=== PATIENT | male | born 1990 | race American Indian/Alaskan Native ===

== ENCOUNTER 2019-01-26 03:19 | Emergency (ER) | payer SELFPAY ==
[2019-01-26 04:15] LABS: Hematocrit 46.4 % (35.5-45.6); Mean Corpuscular HGB Conc 34 % (32-34); Mean Corpuscular Volume 95 fl (84-94); Platelet Count 314 K/mm3 (140-440); Red Blood Count 4.88 M/mm3 (3.65-5.03); Red Cell Distribution Width 13.4 % (13.2-15.2)
[2019-01-26 04:31] LABS: Alanine Aminotransferase 57 units/L (7-56); Albumin 4.7 g/dL (3.9-5); BUN/Creatinine Ratio 9; Blood Urea Nitrogen 9 mg/dL (9-20); Calcium 9.5 mg/dL (8.4-10.2); Hemolysis Index 7
[2019-01-26] MEDS ORDERED: SODIUM CHLORIDE 0.9% 1000 ML 1,000 ML IV ONE (04:46)
[2019-01-26] MEDS ORDERED: ONDANSETRON 4 MG/2 ML INJ IV ONE (04:46)
--- NOTE | 2019-01-26 05:00 | Emergency Department Report ---
ED Abdominal Pain HPI - General Chief Complaint: Abdominal Pain Stated Complaint: FEROZ WEAKNESS Time Seen by Provider: 01/26/19 04:45 Source: patient Mode of arrival: Ambulatory Limitations: No Limitations - History of Present Illness Initial Comments: Pt is a 28 y/o aam with hx of ETOH abuse, who presents for LUQ pain that radiate to epigastric with described as burning. There is associated n/v. Pain and n/v is exacerbated by eating, pain is relieved by nothing. pt denies other medical hx., pain is 5/10 at this time , there is no sob no cough, no wheezing, no dizziness, at this time. MD Complaint: abdominal pain Onset/Timin -: days(s) Location: LUQ Radiation: LUQ, epigastric Severity: moderate Severity scale (0 -10): 5 Quality: burning Consistency: intermittent Improves With: nothing Worsens With: eating Associated Symptoms: nausea, vomiting. denies: diarrhea, fever, chills, constipation, dysuria, hematemesis, hematochezia, melena, hematuria, anorexia, syncope - Related Data Previous Rx's Medication Instructions Recorded Last Taken Type Dicyclomine [Bentyl] 10 mg PO QID PRN #30 capsule 01/26/19 Unknown Rx Naproxen 500 mg PO BID PRN #30 tablet 01/26/19 Unknown Rx Ondansetron [Zofran Odt] 4 mg PO Q8HR #12 tab.rapdis 01/26/19 Unknown Rx Allergies Allergy/AdvReac Type Severity Reaction Status Date / Time No Known Allergies Allergy Verified 01/26/19 03:23 ED Review of Systems ROS: Stated complaint: FEROZ WEAKNESS Other details as noted in HPI Constitutional: denies: chills, fever Eyes: denies: eye pain, eye discharge, vision change ENT: denies: ear pain, throat pain Respiratory: denies: cough, shortness of breath, wheezing Cardiovascular: denies: chest pain, palpitations Endocrine: no symptoms reported Gastrointestinal: abdominal pain, nausea, vomiting. denies: diarrhea, constipation, hematemesis, melena, hematochezia Genitourinary: denies: urgency, dysuria Musculoskeletal: denies: back pain, joint swelling, arthralgia Skin: denies: rash, lesions Neurological: denies: headache, weakness, numbness, paresthesias, confusion, vertigo Psychiatric: denies: anxiety, depression Hematological/Lymphatic: denies: easy bleeding, easy bruising ED Past Medical Hx - Past Medical History Previous Medical History?: No - Surgical History Past Surgical History?: No - Social History Smoking Status: Never Smoker Substance Use Type: Alcohol - Medications Home Medications: Home Medications Medication Instructions Recorded Confirmed Last Taken Type Dicyclomine [Bentyl] 10 mg PO QID PRN #30 capsule 01/26/19 Unknown Rx Naproxen 500 mg PO BID PRN #30 tablet 01/26/19 Unknown Rx Ondansetron [Zofran Odt] 4 mg PO Q8HR #12 tab.rapdis 01/26/19 Unknown Rx ED Physical Exam - General Limitations: No Limitations General appearance: alert, in no apparent distress - Head Head exam: Present: atraumatic, normocephalic - Eye Eye exam: Present: normal appearance, PERRL, EOMI Pupils: Present: normal accommodation - ENT ENT exam: Present: mucous membranes moist - Neck Neck exam: Present: normal inspection, full ROM. Absent: tenderness, meningismus, lymphadenopathy, thyromegaly - Respiratory Respiratory exam: Present: normal lung sounds bilaterally. Absent: respiratory distress, wheezes, rales, rhonchi, stridor, chest wall tenderness - Cardiovascular Cardiovascular Exam: Present: regular rate, normal rhythm, normal heart sounds. Absent: systolic murmur, diastolic murmur, rubs, gallop - GI/Abdominal GI/Abdominal exam: Present: soft, tenderness (LUQ ), normal bowel sounds. Absent: distended, guarding, rebound, rigid, bruit, hernia - Expanded GI/Abdominal Exam Expanded GI/Abdominal exam: Absent: psoas sign, heel tap sign, Howell's sign, Rovsing's sign, tenderness at Mcburney's Point, ascites - Rectal Rectal exam: Present: deferred - Extremities Exam Extremities exam: Present: normal inspection - Back Exam Back exam: Present: normal inspection, full ROM. Absent: tenderness, CVA tenderness (R), CVA tenderness (L) - Neurological Exam Neurological exam: Present: alert, oriented X3, CN II-XII intact, normal gait, reflexes normal. Absent: motor sensory deficit - Psychiatric Psychiatric exam: Present: normal affect, normal mood - Skin Skin exam: Present: warm, dry, intact, normal color. Absent: rash ED Course Vital Signs 01/26/19 03:22 Temperature 98.7 F Pulse Rate 107 H Respiratory 18 Rate Blood Pressure 152/83 O2 Sat by Pulse 97 Oximetry ED Medical Decision Making - Lab Data Result diagrams: 01/26/19 03:47 01/26/19 03:47 Labs 01/26/19 01/26/19 01/26/19 03:47 03:47 03:47 WBC 9.3 RBC 4.88 Hgb 16.0 H Hct 46.4 H MCV 95 H MCH 33 H MCHC 34 RDW 13.4 Plt Count 314 Lymph % (Auto) Surgical Attendant Lymph # Surgical Attendant Seg Neutrophils % Surgical Attendant Sodium 141 Potassium 3.5 L Chloride 101.0 Carbon Dioxide 21 L Anion Gap 23 BUN 9 Creatinine 1.0 Estimated GFR > 60 BUN/Creatinine Ratio 9 Glucose 128 H Calcium 9.5 Total Bilirubin 0.30 AST 54 H ALT 57 H Alkaline Phosphatase 82 Total Protein 8.0 Albumin 4.7 Albumin/Globulin Ratio 1.4 Lipase 32 Urine Bilirubin Urine RBC (Auto) U Epithel Cells (Auto) 01/26/19 Unknown WBC RBC Hgb Hct MCV MCH MCHC RDW Plt Count Lymph % (Auto) Lymph # Seg Neutrophils % Sodium Potassium Chloride Carbon Dioxide Anion Gap BUN Creatinine Estimated GFR BUN/Creatinine Ratio Glucose Calcium Total Bilirubin AST ALT Alkaline Phosphatase Total Protein Albumin Albumin/Globulin Ratio Lipase Urine Bilirubin Neg Urine RBC (Auto) 3.0 U Epithel Cells (Auto) < 1.0 - Radiology Data Radiology results: report reviewed, image reviewed ct abd pelvis, normal, no bleed, no mass mod fatty liver disease. - Medical Decision Making ct abd pelvis, normal, no bleed, no mass mod fatty liver disease. , symptoms are improved, plan: labs noted no gross abnormalities, pt is now tolerating po intake, plan: zofran, bentyl, Naproxen, follow up with pcp, follow up GI , continue hydrate, Stope ETOH, return to ed if symptoms worsen, or return. Critical care attestation.: If time is entered above; I have spent that time in minutes in the direct care of this critically ill patient, excluding procedure time. ED Disposition Clinical Impression: ETOH abuse Abdominal pain Qualifiers: Abdominal location: unspecified location Qualified Code(s): R10.9 - Unspecified abdominal pain Disposition: DC- TO HOME OR SELFCARE Is pt being admited?: No Does the pt Need Aspirin: No Condition: Stable Instructions: Abdominal Pain (ED), Abuse of Alcohol (ED) Prescriptions: Dicyclomine [Bentyl] 10 mg PO QID PRN #30 capsule PRN Reason: abdominal spasm Naproxen 500 mg PO BID PRN #30 tablet PRN Reason: Pain Ondansetron [Zofran Odt] 4 mg PO Q8HR #12 tab.rapdis Referrals: [facility] [Outside] - 3-5 Days [facility] [Provider Group] - 3-5 Days Forms: Work/School Release Form(ED) Time of Disposition: 06:37
--- NOTE | 2019-01-26 05:51 | Cat Scan Report ---
CT ABDOMEN AND PELVIS WITH CONTRAST INDICATION: Left upper quadrant pain for less than one day, constipation for several days CONTRAST: 100 cc Omnipaque 300 IV COMPARISON: None available. All CT scans at this location are performed using CT dose reduction for ALARA by means of automated e xposure control. FINDINGS: Lung bases are clear. No pneumoperitoneum is seen. No significant abdominal wall hernia is noted. Gallbladder and bile ducts appear within normal limits. Pancreas shows no abnormalities. Moder ate fatty infiltration of the liver is seen without significant enlargement and without obvious focal lesion. No urinary obstructive changes are seen. Ureters show no abnormalities. No evidence of bowel obstruction is seen. Appendix appears within normal limits. Stomach and duodenum show no abnormaliti es. No focal inflammatory changes are seen. Appearance of much of the left colon and rectosigmoid col on is thought likely due to lack of distention. No free fluid is seen. No lymphadenopathy is noted. IMPRESSION: No acute abnormalities are seen Signer Name: Sarkis Martinez MD Signed: 01/26/2019 5:47 AM Workstation Name: [id number]
[2019-01-26 06:03] LABS: Bilirubin,Urine NEG (Negative); Blood,Urine NEG (Negative); Color,Urine Yellow (Yellow); Mucus,Urine 2+ /HPF; Urobilinogen,Urine < 2.0 mg/dL (<2.0)
[2019-01-26 06:30] LABS: Anisocytosis 1+; Basophils % (Manual) 0 % (0.0-1.8); Platelet Estimate Consistent w Auto; Total Cells Counted 100
[2019-01-26 06:57] VITALS: BP 160/66
== END 2019-01-26 07:00 | disposition home or self-care (01) ==
LOC: ED 03:19
DX: F10.10 Alcohol abuse, uncomplicated (principal); R10.12 Left upper quadrant pain; R11.2 Nausea with vomiting, unspecified; R10.13 Epigastric pain; Z79.899 Other long term (current) drug therapy
CPT/HCPCS: 36415; 74177; 80053; 81001; 83690; 85007; 85025; 96361; 96374; 99284; J2405; J7030; Q9967